=== PATIENT | male | born 1990 | race African-American/Black ===

== ENCOUNTER 2022-03-30 01:41 | Emergency (ER) | payer OTHER ==
[2022-03-30 01:50] VITALS: BP 119/79; PULSE 66; RESP 16; TEMP 99; BMI 26.4
[2022-03-30] MEDS ORDERED: ACETAMINOPHEN 500 MG TABLET (FP) PO ONE (02:02)
[2022-03-30] MEDS ORDERED: ACETAMINOPHEN 500 MG TABLET (FP) ONE (02:03)
== END 2022-03-30 02:30 | disposition home or self-care (01) ==
LOC: FER 01:41
DX: S02.2XXA Fracture of nasal bones, initial encounter for closed fracture (principal); Y04.8XXA Assault by other bodily force, initial encounter
CPT/HCPCS: 70160-TC-FY; 99283-25